=== PATIENT | male | born 1995 | race Caucasian/White ===

== ENCOUNTER 2018-11-03 22:44 | Emergency (ER) | payer SELFPAY ==
[~2018-11-03] VITALS: Ht 167.6 cm; Wt 69.5 kg
[2018-11-03 22:45] VITALS: Ht 167.6 cm; Wt 69.5 kg
[2018-11-03] MEDS ORDERED: LIDOCAINE/MYLANTA 40 ML BTL PO STA (23:29)
[2018-11-03] MEDS ORDERED: BELLADONNA/PHENOBARBITAL TAB PO STA (23:29)
[2018-11-04] MEDS ORDERED: HYDR-4011 PO (02:00)
[2018-11-04] MEDS ORDERED: FAMO-96 PO (02:00)
[2018-11-04 02:15] VITALS: BP 110/70; PULSE 78; RESP 16
--- NOTE | 2018-11-04 03:01 | ERD ---
ER Documentation Chief Complaint Chief Complaint PT reports upper AP x 3 weeks HPI 22-year-old male presenting with upper abdominal pain x3 weeks. Patient denies any chest pain or shortness of breath. Denies vomiting. He states is been intermittent over the last 2 weeks however the last few days his intensified. He has not taken medications for his symptoms. Denies any fevers. Denies changes in urination or bowel movement. Denies other medical problems. NKDA. Surgical history denies. Social history denies ROS All systems reviewed and are negative except as per history of present illness. Medications Home Meds Active Scripts Famotidine* (Pepcid*) 20 Mg Tablet, 20 MG PO BID for 4 Days, #30 TAB Prov:LONNIE VELARDE PA-C 11/04/18 Hydrocodone/Acetaminophen ([place] 5-325 Tablet) 1 Each Tablet, 1 TAB PO Q6H PRN for PAIN, #7 TAB Prov:LONNIE VELARDE PA-C 11/04/18 Allergies Allergies: Coded Allergies: No Known Allergy (Unverified , 02/22/14) PMhx/Soc History of Surgery: No Anesthesia Reaction: No Hx Neurological Disorder: No Hx Respiratory Disorders: No Hx Cardiac Disorders: No Hx Psychiatric Problems: No Hx Miscellaneous Medical Probl: No Hx Alcohol Use: Yes (once a week) Hx Substance Use: No Hx Tobacco Use: Yes (April) Smoking Status: Former smoker FmHx Family History: No diabetes, No coronary disease, No other Physical Exam Vitals Vital Signs Date Temp Pulse Resp B/P (MAP) Pulse Ox O2 O2 Flow FiO2 Time Delivery Rate 11/04/18 98.1 78 16 110/70 100 Room Air 02:15 (83) 11/03/18 98.5 80 16 125/73 100 22:45 (90) Physical Exam GENERAL: The patient is well-appearing, well-nourished, in no acute distress HEENT: Atraumatic. Conjunctivae are pink. Pupils equal, round, and reactive to light. There is no scleral icterus. Tympanic membranes clear bilaterally. Oropharynx clear. NECK: C-spine is soft and supple. There is no meningismus. There is no cervical lymphadenopathy. CHEST: Clear to auscultation bilaterally. There are no rales, wheezes or rhonchi. HEART: Regular rate and rhythm. No murmurs, clicks, rubs or gallops. ABDOMEN:Soft, nontender and nondistended. Good bowel sounds. No rebound or guarding. No gross peritonitis. No gross organomegaly or masses. Result Diagram: 11/03/185 11/03/18 2335 Results 24 hrs Laboratory Tests Test 11/03/18 23:35 White Blood Count 6.8 10^3/ul Red Blood Count 5.74 10^6/ul Hemoglobin 17.1 g/dl Hematocrit 50.3 % Mean Corpuscular Volume 87.6 fl Mean Corpuscular Hemoglobin 29.8 pg Mean Corpuscular Hemoglobin Concent 34.0 g/dl Red Cell Distribution Width 11.7 % Platelet Count 278 10^3/UL Mean Platelet Volume 9.8 fl Immature Granulocytes % 0.300 % Neutrophils % 57.2 % Lymphocytes % 28.3 % Monocytes % 11.6 % Eosinophils % 1.9 % Basophils % 0.7 % Nucleated Red Blood Cells % 0.0 /100WBC Immature Granulocytes # 0.020 10^3/ul Neutrophils # 3.9 10^3/ul Lymphocytes # 1.9 10^3/ul Monocytes # 0.8 10^3/ul Eosinophils # 0.1 10^3/ul Basophils # 0.1 10^3/ul Nucleated Red Blood Cells # 0.0 10^3/ul Urine Color YELLOW Urine Clarity CLEAR Urine pH 6.0 Urine Specific Wynne 1.021 Urine Ketones NEGATIVE mg/dL Urine Nitrite NEGATIVE mg/dL Urine Bilirubin NEGATIVE mg/dL Urine Urobilinogen NEGATIVE mg/dL Urine Leukocyte Esterase NEGATIVE Margarita/ul Urine Hemoglobin NEGATIVE mg/dL Urine Glucose NEGATIVE mg/dL Urine Total Protein NEGATIVE mg/dl Sodium Level 144 mmol/L Potassium Level 4.7 mmol/L Chloride Level 103 mmol/L Carbon Dioxide Level 32 mmol/L Anion Gap 9 Blood Urea Nitrogen 11 mg/dl Creatinine 0.81 mg/dl Est Glomerular Filtrat Rate mL/min > 60 mL/min Glucose Level 97 mg/dl Calcium Level 10.0 mg/dl Total Bilirubin 0.4 mg/dl Direct Bilirubin 0.00 mg/dl Indirect Bilirubin 0.4 mg/dl Aspartate Amino Transf (AST/SGOT) 30 IU/L Alanine Aminotransferase (ALT/SGPT) 43 IU/L Alkaline Phosphatase 60 IU/L Total Protein 8.2 g/dl Albumin 4.5 g/dl Globulin 3.70 g/dl Albumin/Globulin Ratio 1.21 Lipase 91 U/L Current Medications Medications Dose Sig/Adama Start Time Status Last (Trade) Ordered Route PRN Stop Time Admin Dose Reason Admin 40 ml ONCE STAT 11/03/18 DC 11/03/18 Miscellaneous PO 23:29 11/03/18 23:43 Medication 23:30 (Gi Cocktail (2)) Belladonna/ 2 tab ONCE STAT 11/03/18 DC 11/03/18 Phenobarbital PO 23:29 11/03/18 23:43 () 23:30 Procedures/MDM DIAGNOSTIC IMAGING REPORT Patient: CORAZON ARGUELLES : 1995 Age: 22 Sex: M MR #: [id number] DOS: 11/04/18 2329 Ordering MD: RILEY VELARDE PA-C Location: [facility] Room/Bed: PROCEDURE: ULTRASOUND LIMITED ABDOMEN CLINICAL INDICATION: 22-year-old male with abdominal pain. TECHNIQUE: Multiple sonographic of the right upper quadrant of the abdomen were obtained. The images were reviewed on a PACS workstation. COMPARISON: None. FINDINGS: The pancreas is partially visualized and is otherwise without abnormal echogeni city. The liver displays normal echogenicity. The liver measures 17.1 cm in length. No evidence of intrahepatic biliary ductal dilatation is seen. The portal and hepatic veins are unremarkable. The gallbladder demonstrates no wall thickening, sludge, nor stones. No pericholecystic fluid is seen. The common bile duct measures 3.7 mm and is not dilated. The right kidney displays normal echogenicity. The right kidney measures 10.2 cm in maximal length. No caliectasis or hydronephrosis is seen. No free fluid is seen. IMPRESSION: Unremarkable right upper quadrant abdominal ultrasound. MDM: 22-year-old male presenting with epigastric pain. Patient's blood work and imaging is within normal limits. I have low suspicion for cardiac or pulmonary emergency. I do not feel CT scan is indicated. Patient likely has GERD. Patient is discharged with supportive medications. Patient is recommended to return to the ER symptoms change or worsen. Patient is also told to follow-up with primary care within 1 to 2 days for close evaluation. All questions answered at discharge Departure Diagnosis: Primary Impression: Epigastric pain Condition: Stable Patient Instructions: Gerd (Adult), Epigastric Pain (Uncertain Cause) Referrals: REPLACED BY [facility] YOU HAVE RECEIVED A MEDICAL SCREENING EXAM AND THE RESULTS INDICATE THAT YOU DO NOT HAVE A CONDITION THAT REQUIRES URGENT TREATMENT IN THE EMERGENCY DEPARTMENT. FURTHER EVALUATION AND TREATMENT OF YOUR CONDITION CAN WAIT UNTIL YOU ARE SEEN IN YOUR DOCTORS OFFICE WITHIN THE NEXT 1-2 DAYS. IT IS YOUR RESPONSIBILITY TO MAKE AN APPOINTMENT FOR FOLOW-UP CARE. IF YOU HAVE A PRIMARY DOCTOR --you should call your primary doctor and schedule an appointment IF YOU DO NOT HAVE A PRIMARY DOCTOR YOU CAN CALL OUR PHYSICIAN REFERRAL HOTLINE AT IF YOU CAN NOT AFFORD TO SEE A PHYSICIAN YOU CAN CHOSE FROM THE FOLLOWING [facility] [address] [facility] [address] [facility] [address] [facility] [address] [facility] [address] [facility] [address] [facility]. [address] Additional Instructions: FOLLOW UP WITH YOUR PRIMARY CARE PHYSICIAN TOMORROW.Return to this facility if you are not improving as expected. LONNIE VELARDE PA-C Nov 04, 2018 03:01
== END 2018-11-04 02:14 | disposition home or self-care (01) ==
LOC: FTE 22:44
DX: R10.13 Epigastric pain (principal); Z87.891 Personal history of nicotine dependence
CPT/HCPCS: 36415; 76705; 80053; 81003; 83690; 85025